=== PATIENT | male | born 1975 | race Caucasian/White ===

== ENCOUNTER 2022-05-03 14:19 | Day surgery (SDC) | payer OTHER ==
[~2022-05-03] VITALS: Ht 185.4 cm; Wt 82.9 kg
[2022-05-03] VITALS (7 sets, daily range): BP systolic 123–146; BP diastolic 78–90; PULSE 55–65; TEMP 97.9–98.9
[2022-05-03] MEDS ORDERED: IMITREX50 MG PO (15:17)
[2022-05-03] MEDS ORDERED: LYRICA 75MG CAP75 MG PO (15:18)
[2022-05-03] MEDS ORDERED: PROTONIX 40MG T40 MG PO (15:18)
[2022-05-03] MEDS ORDERED: DESYREL 50MG50 MG PO (15:19)
[2022-05-03] MEDS ORDERED: CYMBALTA 20MG20 MG PO (15:19)
[2022-05-03] MEDS ORDERED: FLOMAX 0.40.4 MG/CAP PO (15:20)
[2022-05-03] MEDS ORDERED: MAXALT10 MG (15:20)
[2022-05-03] MEDS ORDERED: NORCO 325 MG-51 TAB PO (17:55)
--- NOTE | 2022-05-03 18:45 | NUR ---
RECEIVED PT PER CART FROM PACU, POST CYSTO WITH STENT. PT IS ALERT AND ORIENTED. PROCEEDS TO BATHROOM TO VOID THEN TO BED. URINE BLOOD TINGED. IVF TO LEFT HAND. CONNECTED TO DINAMAP. SPRITED PROVIDED.
--- NOTE | 2022-05-03 20:00 | NUR ---
PT READY FOR DISCHARGE. REMOVED INT FROM LEFT HAND, ANGIOCATH INTACT. REVIEWED DISCHARGE INSTRUCTIONS WITH PT AND SPOUSE. MEDICATED WITH PERCOCET 1 TAB PO FOR PAIN 2/[address]. PT REPORTS NO NAUSEA, VOIDING WITHOUT PROBLEM RED URINE.
--- NOTE | 2022-05-03 20:05 | NUR ---
PT DISCHARGED VIA W/C TO PRIVATE CAR, COPY OF DISCHARGE INSTRUCTIONS SENT WITH PT WELL PERSONAL BELONGINGS. PT HAS RX FOR NORCO SENT TO HIS PHARMACY IN [place] TO [facility]IFFS DETECTIVE IN AM.
== END 2022-05-03 21:05 | disposition home or self-care (01) ==
LOC: SDCO 14:19 → SURG 21:00 → SDCO 21:05
DX: N20.1 Calculus of ureter (principal); Z87.891 Personal history of nicotine dependence
CPT/HCPCS: OP; C1769; C2617; J0690; J1100; J2405; J2704; J3010; J7120